=== PATIENT | female | born 1970 | race Caucasian/White ===

== ENCOUNTER 2022-09-14 10:34 | Inpatient (IN) ==
[2022-09-14] MEDS ORDERED: ALBUTEROL SULFATE 2.5 MG/3 ML NEBULIZER NEB ONE (11:05)
[2022-09-14] MEDS ORDERED: methylPREDNISolone SOD SUCC 125 MG/2 ML VIAL IM ONE (11:05)
--- NOTE | 2022-09-14 11:31 | XRay Report ---
CLINICAL INFORMATION: Asthma COMPARISON: 02/22/2022 TECHNIQUE: Portable FINDINGS: The heart size, mediastinum and pulmonary vessels are unremarkable. The lungs are clear. There are no effusions. The bones and soft tissues are within normal limits. IMPRESSION: Normal chest. Interpreted and Authenticated by: Eron Giron 09/14/22
[2022-09-14] MEDS ORDERED: ALBUTEROL SULFATE 2.5 MG/3 ML NEBULIZER NEB PRN (12:40)
[2022-09-14 13:57] LABS: POC Calcium, Ionized 1.16 (1.16-1.32); POC Potassium 3.7 (3.3-5.1)
[2022-09-14 13:59] LABS: Basophils # (Auto) 0.01 K/mcL (0.00-0.30); Basophils % (Auto) 0.1 % (0.0-2.0); Eosinophils # (Auto) 0 K/mcL (0.00-0.70); Eosinophils % (Auto) 0 % (0.0-7.0); Hematocrit 44.4 % (34.1-44.9); Hemoglobin 14.9 g/dL (11.2-15.7); Lymphocytes # (Auto) 0.72 K/mcL (1.50-4.80); Lymphocytes % (Auto) 7.9 % (15.5-49.0); Mean Cell Volume 87.9 fL (80.0-100.0); Mean Corpuscular HGB Conc 33.6 g/dL (31.0-36.0); Mean Platelet Volume 9.9 fL (8.8-12.5); Monocytes # (Auto) 0.16 K/mcL (0.10-0.90); Monocytes % (Auto) 1.8 % (1.0-12.0); Platelet Count 307 K/mcL (140-440); RBC 5.05 M/mcL (3.59-5.38); Red Cell Distribution Width 13.2 % (11.5-14.5); WBC 9.1 K/mcL (4.5-11.0)
--- NOTE | 2022-09-14 14:50 | Emergency Department Note ---
HPI General Chief complaint: Shortness of Breath/Dyspnea Stated complaint: SOB Time Seen by Provider: 09/14/22 11:02 Source: patient Mode of arrival: ambulatory Limitations: no limitations History of Present Illness HPI Narrative: Narrative: 51-year-old female presents the emergency department complaining of shortness of breath. She says she does have history of asthma and feels like she is cannot catch her breath. Says she has had cough and congestion over the last couple days but not having any productive sputum. She states she has had not had any fevers either. Patient states that she is been trying albuterol treatments at home with very little relief she is currently already been on 2 days of predni sone with very little relief as well. She feels like she is just overcome that threshold where she may need further albuterol treatment and nebulizer treatment before she is better. She unfortunately is unable to do DuoNebs as she says her throat swells up whenever she does a DuoNeb. Patient says she can do systemic steroids is just what ever is in the DuoNeb she is unable to do. Denying any o ther symptoms otherwise. Said whenever she walks she feels like she just ran a mile and cannot catch her breath. Related Data Home Medications Medication Instructions Recorded Confirmed albuterol sulfate 90 mcg/actuation 8.5 gm IH Q4HP PRN Shortness Of 12/23/17 08/29/22 aerosol inhaler (ProAir HFA) Breath calcium carbonate 334 mg-magnesium 1 ea PO DAILY 12/23/17 08/29/22 oxide 134 mg-zinc oxide 5 mg tablet cholecalciferol (vitamin D3) 125 10,000 unit PO DAILY 12/23/17 08/29/22 mcg (5,000 unit) capsule (Dialyvite Vitamin D) docusate sodium 100 mg capsule 100 mg PO Q48 12/23/17 08/29/22 (DulcoEase) flaxseed oil 1,000 mg capsule 2,000 mg PO DAILY 12/23/17 08/29/22 fluticasone 100 mcg-salmeterol 50 1 puff INH BID 12/23/17 08/29/22 mcg/dose blistr powdr for inhalation (Advair Diskus) fluticasone propionate 220 2 puff INH QHS 02/25/18 11/01/22 mcg/actuation HFA aerosol inhaler (Flovent HFA) iron-vit C-vit Z10-dzxlr acid 100 1 ea PO DAILY 12/23/17 08/23/22 mg-250 mg-25 mcg-1 mg tablet (Iron) potassium chloride 20 mEq 20 meq PO QAMCC PRN Pain 12/23/17 08/23/22 tablet,extended release(part/cryst) (Klor-Con M) vit no.95-ferrous 1 ea PO DAILY 12/23/17 08/29/22 fumarate 28 mg-folic acid 800 mcg tablet ( Formula) Vital Protiens-collagen 1 tab PO DAILY 07/07/21 08/29/22 albuterol sulfate 2.5 mg/3 mL 2.5 mg inhalation Q4H PRN Asthma 07/07/21 08/29/22 (0.083 %) solution for nebulization hydroxyzine HCl 10 mg tablet 10 mg PO ONCE PRN Itching 07/07/21 08/29/22 levalbuterol tartrate 45 2 inh inhalation Q6H PRN Shortness 07/07/21 08/29/22 mcg/actuation aerosol inhaler Of Breath clonidine 0.1 mg/24 hr weekly 1 patch transdermal WEEKLY PRN 09/20/21 08/23/22 transdermal patch Anxiety benralizumab 30 mg/mL subcutaneous 30 mg subcut Q4W 12/02/21 08/29/22 syringe (Fasenra) Previous Rx's Medication Instructions Recorded epinephrine 0.3 mg/0.3 mL 0.3 mg (0.3 mL) IM DAILYP PRN 09/27/21 injection, auto-injector (EpiPen) Allergic Reaction #2 ea acyclovir 800 mg tablet 800 mg PO DAILY PRN rash #50 tabs 03/14/22 cyclobenzaprine 5 mg tablet 5 mg PO MONTHLY #3 tabs 07/25/22 dicyclomine 10 mg capsule 10 mg PO QDAY #90 caps 07/25/22 famotidine 40 mg tablet (Pepcid) 40 mg PO DAILY #30 tabs 07/25/22 hydroxyzine HCl 50 mg tablet 50 mg PO HS #90 tabs 07/25/22 levothyroxine 112 mcg tablet 112 mcg PO QDAY #90 tabs 07/25/22 ondansetron HCl 4 mg tablet 4 mg PO Q4-6H PRN Nausea And 07/25/22 Vomiting #30 tabs rizatriptan 10 mg tablet 10 mg PO .COMPLEX PRN Headache #18 07/25/22 tabs sertraline 50 mg tablet 50 mg PO DAILY #90 tabs 07/25/22 verapamil 240 mg tablet,extended See Rx Instructions PO BID #135 07/25/22 release tabs lorazepam 1 mg tablet 2 mg PO QHS 90 days #180 tabs 08/14/22 lansoprazole 30 mg capsule,delayed 30 mg PO QDAY #30 caps 08/24/22 release sucralfate 1 gram tablet 1 g PO BID PRN stomach pain #60 08/24/22 tabs Allergies Allergy/AdvReac Type Severity Reaction Status Date / Time aloe Allergy Unknown Unknown Verified 08/23/22 13:25 povidone-iodine Allergy Unknown Unknown Verified 08/23/22 13:25 [From Scrub Care Povidone Iodine] soybean Allergy Unknown Unknown Verified 08/23/22 13:25 vilazodone Allergy Unknown Unknown Verified 08/23/22 13:25 Zileuton Allergy Unknown Unknown Verified 08/23/22 13:25 acetaminophen [From Fioricet] Allergy Anaphylaxis Verified 08/23/22 13:25 azithromycin Allergy Anaphylaxis Verified 08/23/22 13:25 Beclomethasone Allergy Anaphylaxis Verified 08/23/22 13:25 butalbital [From Fioricet] Allergy Anaphylaxis Verified 08/23/22 13:25 caffeine [From Fioricet] Allergy Anaphylaxis Verified 08/23/22 13:25 cephalexin [From Keflex] Allergy Anaphylaxis Verified 08/23/22 13:25 clarithromycin [From Biaxin] Allergy Anaphylaxis Verified 08/23/22 13:25 Cromolyn Allergy Anaphylaxis Verified 08/23/22 13:25 diphenhydramine Allergy Anaphylaxis Verified 08/23/22 13:25 [From Benadryl] escitalopram Allergy Anaphylaxis Verified 08/23/22 13:25 etomidate [From Amidate] Allergy Anaphylaxis Verified 08/23/22 13:25 furosemide Allergy Anaphylaxis Verified 08/23/22 13:25 hydrocodone Allergy Anaphylaxis Verified 08/23/22 13:25 iodine Allergy Anaphylaxis Verified 08/23/22 13:25 ipratropium Allergy Anaphylaxis Verified 08/23/22 13:25 lanolin Allergy Anaphylaxis Verified 08/23/22 13:25 latex Allergy Anaphylaxis Verified 08/23/22 13:25 magnesium Allergy Anxiety Verified 08/23/22 13:25 miconazole Allergy Anaphylaxis Verified 08/23/22 13:25 naproxen [From Aleve] Allergy Anaphylaxis Verified 08/23/22 13:25 Penicillins Allergy Anaphylaxis Verified 08/23/22 13:25 promethazine [From Phenergan] Allergy Anaphylaxis Verified 08/23/22 13:25 Sulfa (Sulfonamide Allergy Anaphylaxis Verified 08/23/22 13:25 Antibiotics) venlafaxine [From Effexor] Allergy Anaphylaxis Verified 08/23/22 13:25 propofol AdvReac Other Verified 08/23/22 13:25 trilyte Allergy Unknown Unknown Uncoded 08/23/22 13:25 Review of Systems ROS ROS Narrative: Narrative: All systems ED: reviewed and negative except as stated. [facility] Narrative Patient History Narrative: Narrative: Medical/Surgical/Family History All Active Problems (Updated 09/14/22 @ 14:50 by Roberto Thorpe DO) Asthma with exacerbation (Chronic) Viral rash (Chronic) Genital herpes (Chronic) Allergic reaction (Chronic) Cramps of left lower extremity (Chronic) Hypoglycemia (Chronic) Allergic reaction caused by a drug (Chronic) Adverse reaction to drug (Chronic) COVID-19 (Chronic) Dehydration (Chronic) PTSD (post-traumatic stress disorder) (Chronic) Anxiety (Chronic) Hypothyroid (Chronic) Hypertension (Chronic) Tachycardia (Chronic) Palpitations (Chronic) Asthma (Chronic) COPD (chronic obstructive pulmonary disease) (Chronic) Cervical cancer (Chronic) Uterine cancer (Chronic) Esophageal spasm (Chronic) Arm mass (Chronic) Herpes (Chronic) Chlamydia (Chronic) Migraines (Chronic) Vitamin D deficiency (Chronic) B12 deficiency (Chronic) Potassium (K) deficiency (Chronic) Iron deficiency (Chronic) Multiple food allergies (Chronic) Peripheral nerve disease (Chronic) Sleep apnea (Chronic) Thyroid disorder (Chronic) Shortness of breath (Acute) Acute asthma exacerbation (Acute) Pelvic pain (Acute) Mixed incontinence (Acute) Allergic reaction (Acute) Left lower quadrant pain (Acute) Dyspareunia (Acute) Major depressive disorder, recurrent (Chronic) Asthma exacerbation (Acute) Medical History Allergic reaction caused by a drug Anxiety Arm mass Multiple Mass/bumps in left forearm-Benign tumores Asthma B12 deficiency Cervical cancer Chlamydia COPD (chronic obstructive pulmonary disease) COVID-19 Dehydration Esophageal spasm Herpes Hypertension Hypothyroid Iron deficiency Migraines Multiple food allergies Palpitations Peripheral nerve disease Potassium (K) deficiency PTSD (post-traumatic stress disorder) Sleep apnea Tachycardia Thyroid disorder Uterine cancer Hysterectomy 1998 Vitamin D deficiency Surgical History History of appendectomy (~2005) History of (~1996) History of cholecystectomy (~2007) History of colonoscopy (12/08/21) History of D&C x6 History of esophagogastroduodenoscopy (EGD) (12/08/21) 02/01/22 History of gastric bypass (~2013) History of hysterectomy (~1997) History of intestinal surgery (~2015) GI repair History of nasal surgery (~1999) History of oral surgery (~1999) [place] Palate Family History Mother Diabetes Thyroid disorder Dementia Degenerative joint disease Father Hypertension Social History Smoking Status: Never smoker Alcohol Intake Frequency: does not drink Substance Use: does not use Exam Narrative Narrative: Narrative: Vital signs noted General: Awake. Alert. No distress. Skin: Warm. Dry. No rash. HEENT: NCAT. PERRL. EOMI. No conjunctivitis. No nystagmus. No pharyngitis. Membranes moist. Neck: No PTP. Good ROM. No meningeal signs. No stridor. No thyromegaly. No JVD. Cardiovascular: Cardiac and regular. No murmur. No rubs. No gallops. Respiratory: Mild respiratory distress with wheezes heard throughout and expiratory wheezes heard that were audible. Oropharynx is open and patent Gastrointestinal: Abdomen soft. No tenderness. No distention. Normal bowel sounds. No palpable organomegaly or masses. Back: No deformity. No CVAT. Musculoskeletal: No tenderness. No swelling. No erythema. No edema. Good peripheral pulses x 4 Lymphatic: No palpable adenopathy. Neurological: No focal neurological deficits observed. General Limitations: no limitations Course Vital Signs Vital signs: Vital Signs Temperature 97.5 F 09/14/22 10:36 Pulse Rate 95 H 09/14/22 10:36 Respiratory Rate 26 H 09/14/22 10:36 Blood Pressure 129/82 09/14/22 10:36 Pulse Oximetry (%) 93 09/14/22 10:36 Oxygen Delivery Method 09/14/22 10:36 Temperature 97.5 F 09/14/22 10:36 Pulse Rate 91 H 09/14/22 15:50 Respiratory Rate 26 H 09/14/22 10:36 Blood Pressure 126/77 09/14/22 15:50 Pulse Oximetry (%) 94 09/14/22 15:50 Oxygen Delivery Method 09/14/22 10:36 MDM MDM Narrative Medical decision making narrative: Narrative: Patient actually looks well on exam. She although is in moderate to mild respiratory distress. I immediately gave her 3 albuterol treatments in the hope that this would help with her breathing unfortunately and unable to get DuoNeb treatments. I also got an x-ray of her chest which came back no acute findings. Also gave her Solu-Medrol as well. I let her rest for about an hour to see how she was feeling she shortly got up to go to the bathroom immediately became more short of breath and said that she felt like she was having a hard time breathing she was very tachypneic and not moving much air so I gave her another breathing treatment. This time aside to order labs to be sure I am not missing underlying infection. CBC came back no acute findings no signs of leukocytosis very low suspicion for pneumonia I think this is just a asthma exacerbation that was exacerbated secondary to a viral URI that currently is going on. Viral panel is pending at this time influenza and COVID were all negative. Patient is currently needing every 2 hours nebulizer treatments I think she needs continued steroids. Due to this I think patient would benefit from being admitted to the hospital she is not needing oxygen at this time but is noticeably wheezy and tachypneic whenever she tries to move or get up and walk. Even just sitting at rest she becomes more more tachypneic and almost at the 2 hour srikanth needs more albuterol to help with the breathing. She did have a markedly elevated glucose which I think is due to the steroid use I did speak with her about this and said that is normal when she does steroids. But she is not in DKA and there is no anion gap. I spoke with the hospitalist Dr. LARSEN who has agreed to admit the patient. Patient is can to be admitted in fair condition. He did request a VBG which was ordered while here. VBG did show lactic acidosis as well as an lowered bicarb which can be expected with that. Again I think that is due to the breathing and possibly the increase in albuterol and the steroids. Lab Data Result diagrams: 09/14/22 13:00 Labs: Lab Results 09/14/22 09/14/22 09/14/22 Range/Units 13:00 13:00 13:53 WBC 9.1 (4.5-11.0) K/mcL RBC 5.05 (3.59-5.38) M/mcL Hgb 14.9 (11.2-15.7) g/dL Hct 44.4 (34.1-44.9) % POC Hct 43.0 (36-48) MCV 87.9 (80.0-100.0) fL MCH 29.5 (26.0-34.0) pg MCHC 33.6 (31.0-36.0) g/dL RDW 13.2 (11.5-14.5) % Plt Count 307 (140-440) K/mcL MPV 9.9 (8.8-12.5) fL Immature Gran % (Auto) 0.2 (0.0-0.5) % Neut % (Auto) 90.0 H (38.0-78.0) % Lymph % (Auto) 7.9 L (15.5-49.0) % [place] % (Auto) 1.8 (1.0-12.0) % Eos % (Auto) 0 (0.0-7.0) % Baso % (Auto) 0.1 (0.0-2.0) % Lymph # (Auto) 0.72 L (1.50-4.80) K/mcL [place] # (Auto) 0.16 (0.10-0.90) K/mcL Eos # (Auto) 0 (0.00-0.70) K/mcL Baso # (Auto) 0.01 (0.00-0.30) K/mcL Immature Gran # 0.02 (0.00-0.05) K/mcl Absolute Neutrophils 8.20 H (1.80-8.00) K/mcL POC VBG pH (7.32-7.42) POC VBG pCO2 at Temp (41-51) POC VBG pO2 (25-40) POC VBG HCO3 (24-28) POC VBG Total CO2 (25-29) POC Venous O2 Sat (40-70) POC VBG Base Excess (-2-2) VBG Lactic Acid (0.5-2) POC Sodium 140 (133-145) POC Potassium 3.7 (3.3-5.1) POC Chloride 106 (96-108) POC Total CO2 19.0 L (22-30) POC BUN 14 (6-20) POC Creatinine 1.0 (0.6-1.2) POC Glucose 422 H (70-105) POC WB Ioniz Calcium 1.16 (1.16-1.32) Procalcitonin 0.05 (<0.10) ng/mL 09/14/22 Range/Units 14:53 WBC (4.5-11.0) K/mcL RBC (3.59-5.38) M/mcL Hgb (11.2-15.7) g/dL Hct (34.1-44.9) % POC Hct (36-48) MCV (80.0-100.0) fL MCH (26.0-34.0) pg MCHC (31.0-36.0) g/dL RDW (11.5-14.5) % Plt Count (140-440) K/mcL MPV (8.8-12.5) fL Immature Gran % (Auto) (0.0-0.5) % Neut % (Auto) (38.0-78.0) % Lymph % (Auto) (15.5-49.0) % [place] % (Auto) (1.0-12.0) % Eos % (Auto) (0.0-7.0) % Baso % (Auto) (0.0-2.0) % Lymph # (Auto) (1.50-4.80) K/mcL [place] # (Auto) (0.10-0.90) K/mcL Eos # (Auto) (0.00-0.70) K/mcL Baso # (Auto) (0.00-0.30) K/mcL Immature Gran # (0.00-0.05) K/mcl Absolute Neutrophils (1.80-8.00) K/mcL POC VBG pH 7.36 (7.32-7.42) POC VBG pCO2 at Temp 33.1 L (41-51) POC VBG pO2 55 H (25-40) POC VBG HCO3 18.9 L (24-28) POC VBG Total CO2 20.0 L (25-29) POC Venous O2 Sat 88.0 H (40-70) POC VBG Base Excess -7.0 L (-2-2) VBG Lactic Acid 7.3 H* (0.5-2) POC Sodium (133-145) POC Potassium (3.3-5.1) POC Chloride (96-108) POC Total CO2 (22-30) POC BUN (6-20) POC Creatinine (0.6-1.2) POC Glucose (70-105) POC WB Ioniz Calcium (1.16-1.32) Procalcitonin (<0.10) ng/mL ED POC Tests ED POC Tests: THOM - Influenza A Negative THOM - Influenza B Negative THOM - SARS Antigen Negative Discharge Plan Patient/Caregiver Discharge Instructions Pt seen by PLANNER CHIEF/PA only: No Clinical Impression: Asthma exacerbation Qualifiers: Asthma severity: moderate Asthma persistence: persistent Qualified Code(s): J45.41 - Moderate persistent asthma with (acute) exacerbation Patient Disposition: Xfer As Outpt/Obs ([facility]) Discharge Date/Time: 09/14/22 16:13
[2022-09-14] MEDS ORDERED: DEXTROSE 31 GM ORAL.SUSP PO PRN (15:29)
[2022-09-14] MEDS ORDERED: DEXTROSE 50% 50 ML VIAL IV PRN (15:29)
--- NOTE | 2022-09-14 15:29 | Internal Med History&Physical ---
HPI History of Present Illness Patient information: Note initiated : 09/14/22 at 3:18 pm Service Date, if different from initiated Date: [] Patient: Miriam Santos 51 y/o F admitted on for Shortness of breath. Chief Complaint: [] History of present illness: Ms. Santos is a 51 year old female with a history of severe asthma on biologic therapy, multiple allergies, hypertension, palpitations, hypothyroidism, depression, anxiety, PTSD, multiple prior cancers who presented to the emergency department with shortness of breath. The patient has been trying to manage her asthma at home for the last 2 days with no success. She is taken prednisone 60 mg daily and increased her albuterol inhaler but continues to feel shortness of breath. The patient says that she usually goes to the emergency department if her symptoms do not improve after 2 days of initiating her asthma action plan. The patient says that she has been hospitalized many times for asthma exacerbations. She has been intubated many times as well however does not remember how many times she is required intubation for an asthma exacerbation. In the emergency department, the patient's respiratory rate was in the mid 20s, her heart rate was 90s to low 100s. The patient was saturating well on room air, she is afebrile. There is no leukocytosis, chemistry panel revealed a glucose of 422 but was otherwise fairly unremarkable. Hyperglycemia is likely secondary to recent prednisone use at home. Procalcitonin level was normal at 0.05. Chest x-ray did not show any acute process. Physical exam is notable for diffuse inspiratory and expiratory wheezes. Review of systems Constitutional: Positive for chills, denies fevers Eyes: no vision changes or pain Cardiovascular: no chest pain, no palpitations Respiratory: Positive for shortness of breath Gastrointestinal: Positive for mild epigastric tenderness no nausea, vomiting, or diarrhea Genitourinary: no dysuria or difficulty voiding Musculoskeletal: no arthralgia or myalgia Integumentary: no skin lesion or wound Neurological: Positive for left lower extremity neuropathic pain Psychiatric: Positive for anxiety Physical exam Head: Atraumatic, normal inspection. Eyes: normal appearance, no scleral icterus. Neck: full ROM Respiratory: Diffuse bilateral inspiratory and expiratory wheezes, no accessory muscle use, able to converse in complete sentences. Cardiovascular: normal rate and rhythm, S1, S2. GI/Abdominal: soft, nontender, no guarding. Extremities: full range of motion, nontender. Neurological: CN II-XII intact, intact motor, intact sensation. Psychiatric: normal mood. Skin: warm, normal color PFSH PFSH All Active Problems (Updated 09/14/22 @ 14:50 by Roberto Thorpe DO) Asthma with exacerbation (Chronic) Viral rash (Chronic) Genital herpes (Chronic) Allergic reaction (Chronic) Cramps of left lower extremity (Chronic) Hypoglycemia (Chronic) Allergic reaction caused by a drug (Chronic) Adverse reaction to drug (Chronic) COVID-19 (Chronic) Dehydration (Chronic) PTSD (post-traumatic stress disorder) (Chronic) Anxiety (Chronic) Hypothyroid (Chronic) Hypertension (Chronic) Tachycardia (Chronic) Palpitations (Chronic) Asthma (Chronic) COPD (chronic obstructive pulmonary disease) (Chronic) Cervical cancer (Chronic) Uterine cancer (Chronic) Esophageal spasm (Chronic) Arm mass (Chronic) Herpes (Chronic) Chlamydia (Chronic) Migraines (Chronic) Vitamin D deficiency (Chronic) B12 deficiency (Chronic) Potassium (K) deficiency (Chronic) Iron deficiency (Chronic) Multiple food allergies (Chronic) Peripheral nerve disease (Chronic) Sleep apnea (Chronic) Thyroid disorder (Chronic) Shortness of breath (Acute) Acute asthma exacerbation (Acute) Pelvic pain (Acute) Mixed incontinence (Acute) Allergic reaction (Acute) Left lower quadrant pain (Acute) Dyspareunia (Acute) Major depressive disorder, recurrent (Chronic) Asthma exacerbation (Acute) Medical History Allergic reaction caused by a drug Anxiety Arm mass Multiple Mass/bumps in left forearm-Benign tumores Asthma B12 deficiency Cervical cancer Chlamydia COPD (chronic obstructive pulmonary disease) COVID-19 Dehydration Esophageal spasm Herpes Hypertension Hypothyroid Iron deficiency Migraines Multiple food allergies Palpitations Peripheral nerve disease Potassium (K) deficiency PTSD (post-traumatic stress disorder) Sleep apnea Tachycardia Thyroid disorder Uterine cancer Hysterectomy 1998 Vitamin D deficiency Surgical History History of appendectomy (~2005) History of (~1996) History of cholecystectomy (~2007) History of colonoscopy (12/08/21) History of D&C x6 History of esophagogastroduodenoscopy (EGD) (12/08/21) 02/01/22 History of gastric bypass (~2013) History of hysterectomy (~1997) History of intestinal surgery (~2015) GI repair History of nasal surgery (~1999) History of oral surgery (~1999) Soft Palate Family History Mother Diabetes Thyroid disorder Dementia Degenerative joint disease Father Hypertension Social History household members: spouse and family marital status: occupational status: disabled physical activity: none smoking status: Never smoker alcohol intake frequency: does not drink substance use type: does not use seatbelt use: always MEDS/ALLERGIES Home Medications and Allergies Home Medications Medication Instructions Recorded Confirmed Type albuterol sulfate 90 mcg/actuation 8.5 gm IH Q4HP PRN Shortness Of 12/23/17 08/29/22 History aerosol inhaler (ProAir HFA) Breath calcium carbonate 334 mg-magnesium 1 ea PO DAILY 12/23/17 08/29/22 History oxide 134 mg-zinc oxide 5 mg tablet cholecalciferol (vitamin D3) 125 10,000 unit PO DAILY 12/23/17 08/29/22 History mcg (5,000 unit) capsule (Dialyvite Vitamin D) docusate sodium 100 mg capsule 100 mg PO Q48 12/23/17 08/29/22 History (DulcoEase) flaxseed oil 1,000 mg capsule 2,000 mg PO DAILY 12/23/17 08/29/22 History fluticasone 100 mcg-salmeterol 50 1 puff INH BID 12/23/17 08/29/22 History mcg/dose blistr powdr for inhalation (Advair Diskus) fluticasone propionate 220 2 puff INH QHS 12/23/17 08/29/22 History mcg/actuation HFA aerosol inhaler (Flovent HFA) iron-vit C-vit M90-sjezn acid 100 1 ea PO DAILY 12/23/17 08/23/22 History mg-250 mg-25 mcg-1 mg tablet (Iron) potassium chloride 20 mEq 20 meq PO QAMCC PRN Pain 12/23/17 08/23/22 History tablet,extended release(part/cryst) (Klor-Con M) vit no.95-ferrous 1 ea PO DAILY 12/23/17 08/29/22 History fumarate 28 mg-folic acid 800 mcg tablet ( Formula) Vital Protiens-collagen 1 tab PO DAILY 07/07/21 08/29/22 History albuterol sulfate 2.5 mg/3 mL 2.5 mg inhalation Q4H PRN Asthma 07/07/21 08/29/22 History (0.083 %) solution for nebulization hydroxyzine HCl 10 mg tablet 10 mg PO ONCE PRN Itching 07/07/21 08/29/22 History levalbuterol tartrate 45 2 inh inhalation Q6H PRN Shortness 07/07/21 08/29/22 History mcg/actuation aerosol inhaler Of Breath clonidine 0.1 mg/24 hr weekly 1 patch transdermal WEEKLY PRN 09/20/21 08/23/22 History transdermal patch Anxiety epinephrine 0.3 mg/0.3 mL 0.3 mg (0.3 mL) IM DAILYP PRN 09/27/21 08/29/22 Rx injection, auto-injector (EpiPen) Allergic Reaction #2 ea benralizumab 30 mg/mL subcutaneous 30 mg subcut Q4W 12/02/21 08/29/22 History syringe (Fasenra) acyclovir 800 mg tablet 800 mg PO DAILY PRN rash #50 tabs 03/14/22 08/23/22 Rx cyclobenzaprine 5 mg tablet 5 mg PO MONTHLY #3 tabs 07/25/22 08/23/22 Rx dicyclomine 10 mg capsule 10 mg PO QDAY #90 caps 07/25/22 08/29/22 Rx famotidine 40 mg tablet (Pepcid) 40 mg PO DAILY #30 tabs 07/25/22 08/29/22 Rx hydroxyzine HCl 50 mg tablet 50 mg PO HS #90 tabs 07/25/22 08/29/22 Rx levothyroxine 112 mcg tablet 112 mcg PO QDAY #90 tabs 07/25/22 08/29/22 Rx ondansetron HCl 4 mg tablet 4 mg PO Q4-6H PRN Nausea And 07/25/22 08/29/22 Rx Vomiting #30 tabs rizatriptan 10 mg tablet 10 mg PO .COMPLEX PRN Headache #18 07/25/22 08/29/22 Rx tabs sertraline 50 mg tablet 50 mg PO DAILY #90 tabs 07/25/22 08/23/22 Rx verapamil 240 mg tablet,extended See Rx Instructions PO BID #135 07/25/22 08/29/22 Rx release tabs lorazepam 1 mg tablet 2 mg PO QHS 90 days #180 tabs 08/14/22 08/29/22 Rx lansoprazole 30 mg capsule,delayed 30 mg PO QDAY #30 caps 08/24/22 08/29/22 Rx release sucralfate 1 gram tablet 1 g PO BID PRN stomach pain #60 08/24/22 08/29/22 Rx tabs Allergies Allergy/AdvReac Type Severity Reaction Status Date / Time aloe Allergy Unknown Unknown Verified 08/23/22 13:25 povidone-iodine Allergy Unknown Unknown Verified 08/23/22 13:25 [From Scrub Care Povidone Iodine] soybean Allergy Unknown Unknown Verified 08/23/22 13:25 vilazodone Allergy Unknown Unknown Verified 08/23/22 13:25 Zileuton Allergy Unknown Unknown Verified 08/23/22 13:25 acetaminophen [From Fioricet] Allergy Anaphylaxis Verified 08/23/22 13:25 azithromycin Allergy Anaphylaxis Verified 08/23/22 13:25 Beclomethasone Allergy Anaphylaxis Verified 08/23/22 13:25 butalbital [From Fioricet] Allergy Anaphylaxis Verified 08/23/22 13:25 caffeine [From Fioricet] Allergy Anaphylaxis Verified 08/23/22 13:25 cephalexin [From Keflex] Allergy Anaphylaxis Verified 08/23/22 13:25 clarithromycin [From Biaxin] Allergy Anaphylaxis Verified 08/23/22 13:25 Cromolyn Allergy Anaphylaxis Verified 08/23/22 13:25 diphenhydramine Allergy Anaphylaxis Verified 08/23/22 13:25 [From Benadryl] escitalopram Allergy Anaphylaxis Verified 08/23/22 13:25 etomidate [From Amidate] Allergy Anaphylaxis Verified 08/23/22 13:25 furosemide Allergy Anaphylaxis Verified 08/23/22 13:25 hydrocodone Allergy Anaphylaxis Verified 08/23/22 13:25 iodine Allergy Anaphylaxis Verified 08/23/22 13:25 ipratropium Allergy Anaphylaxis Verified 08/23/22 13:25 lanolin Allergy Anaphylaxis Verified 08/23/22 13:25 latex Allergy Anaphylaxis Verified 08/23/22 13:25 magnesium Allergy Anxiety Verified 08/23/22 13:25 miconazole Allergy Anaphylaxis Verified 08/23/22 13:25 naproxen [From Aleve] Allergy Anaphylaxis Verified 08/23/22 13:25 Penicillins Allergy Anaphylaxis Verified 08/23/22 13:25 promethazine [From Phenergan] Allergy Anaphylaxis Verified 08/23/22 13:25 Sulfa (Sulfonamide Allergy Anaphylaxis Verified 08/23/22 13:25 Antibiotics) venlafaxine [From Effexor] Allergy Anaphylaxis Verified 08/23/22 13:25 propofol AdvReac Other Verified 08/23/22 13:25 trilyte Allergy Unknown Unknown Uncoded 08/23/22 13:25 EXAM Constitutional Vitals: Temp Pulse Resp BP Pulse Ox O2 Del Method 97.5 F 91 H 26 H 129/82 95 09/14/22 10:36 09/14/22 14:59 09/14/22 10:36 09/14/22 10:36 09/14/22 14:59 09/14/22 10:36 DATA Data Completed and Pending Labs: Labs from last 24 hours 09/14/22 09/14/22 09/14/22 14:53 13:53 13:00 WBC RBC Hgb Hct POC Hct 43.0 MCV MCH MCHC RDW Plt Count MPV Immature Gran % (Auto) Neut % (Auto) Lymph % (Auto) [place] % (Auto) Eos % (Auto) Baso % (Auto) Lymph # (Auto) [place] # (Auto) Eos # (Auto) Baso # (Auto) Immature Gran # Absolute Neutrophils POC VBG pH 7.36 POC VBG pCO2 at Temp 33.1 L POC VBG pO2 55 H POC VBG HCO3 18.9 L POC VBG Total CO2 20.0 L POC Venous O2 Sat 88.0 H POC VBG Base Excess -7.0 L VBG Lactic Acid 7.3 H* POC Sodium 140 POC Potassium 3.7 POC Chloride 106 POC Total CO2 19.0 L POC BUN 14 POC Creatinine 1.0 POC Glucose 422 H POC WB Ioniz Calcium 1.16 Procalcitonin 0.05 09/14/22 13:00 WBC 9.1 RBC 5.05 Hgb 14.9 Hct 44.4 POC Hct MCV 87.9 MCH 29.5 MCHC 33.6 RDW 13.2 Plt Count 307 MPV 9.9 Immature Gran % (Auto) 0.2 Neut % (Auto) 90.0 H Lymph % (Auto) 7.9 L [place] % (Auto) 1.8 Eos % (Auto) 0 Baso % (Auto) 0.1 Lymph # (Auto) 0.72 L [place] # (Auto) 0.16 Eos # (Auto) 0 Baso # (Auto) 0.01 Immature Gran # 0.02 Absolute Neutrophils 8.20 H POC VBG pH POC VBG pCO2 at Temp POC VBG pO2 POC VBG HCO3 POC VBG Total CO2 POC Venous O2 Sat POC VBG Base Excess VBG Lactic Acid POC Sodium POC Potassium POC Chloride POC Total CO2 POC BUN POC Creatinine POC Glucose POC WB Ioniz Calcium Procalcitonin A/P Narrative A/P Narrative: Assessment: 51 year old female with a history of severe asthma on biologic therapy, multiple allergies, hypertension, palpitations, hypothyroidism, depression, anxiety, PTSD, multiple prior cancers who presented to the emergency department with shortness of breath and found to have an asthma exacerbation. The patient has been hospitalized at multiple times for asthma exacerbations, she has also required intubation and mechanical ventilation for prior asthma exacerbations. #Asthma exacerbation with severe asthma at baseline #Multiple allergies #Hyperglycemia likely secondary to steroid #Hypertension #Hypothyroidism #Depression #Anxiety disorder #PTSD #Obesity BMI 32 Plan -Solu-Medrol 125 mg IV daily for now. -Scheduled and as needed Xopenex nebulizer. -Obtain VBG and lactic acid for admission baseline. -Respiratory virus panel. -Monitor respiratory status closely in PCU. -Check Hemoglobin A1C. -Humalog SSI-low dose. -Home medication reconciliation. -Review all new medications for possible allergies. -Regular diet. -DVT prophylaxis: SCDs -CODE STATUS: Application Support Engineer Spent With Patient Time: Total time spent is greater than 50% in coordination of care (as documented) at patient's floor/unit and/or counseling patient:
[2022-09-14] MEDS ORDERED: cloNIDine TTS 1 1 PATCH PATCH TD ONE (16:25)
[2022-09-14] MEDS ORDERED: LACTULOSE 20 GM/30 ML ORAL.SOL PO PRN (16:25)
[2022-09-14] MEDS ORDERED: LEVALBUTEROL 1.25 MG/3 ML AMPUL.NEB NEB PRN (16:25)
[2022-09-14] MEDS ORDERED: ONDANSETRON 4 MG/2 ML VIAL IV PRN (16:25)
[2022-09-14] MEDS ORDERED: 0.9 % SODIUM CHLORIDE 1,000 ML IV ONE (16:25)
[2022-09-14] MEDS ORDERED: SENNOSIDES 1 TABLET PO PRN (16:25)
[2022-09-14] MEDS: INSULIN LISPRO 1 UNIT/0.01 ML UNIT SQ SCH ×2 (17:37→22:04)
[2022-09-14] MEDS: LEVALBUTEROL 1.25 MG/3 ML AMPUL.NEB NEB SCH ×3 (18:00→22:04)
[2022-09-14] MEDS: DOCUSATE SODIUM 100 MG CAPSULE PO SCH (22:01)
[2022-09-14] MEDS ORDERED: Rizatriptan 10 mg tablet PO PRN (22:08)
[2022-09-14] MEDS: LORazepam 1 MG TABLET PO SCH (22:19)
[2022-09-14] MEDS: 0.9 % SODIUM CHLORIDE 10 ML SYRINGE IV SCH (22:20)
[2022-09-14] MEDS: hydrOXYzine 25 MG TABLET PO SCH (22:30)
[2022-09-15] MEDS ORDERED: OSELTAMIVIR PHOSPHATE 75 MG CAPSULE PO ONE (02:25)
[2022-09-15] MEDS: OSELTAMIVIR PHOSPHATE 75 MG CAPSULE PO SCH ×3 (02:30→20:44)
[2022-09-15] MEDS: LEVALBUTEROL 1.25 MG/3 ML AMPUL.NEB NEB SCH ×6 (03:23→22:19)
[2022-09-15] MEDS: 0.9 % SODIUM CHLORIDE 10 ML SYRINGE IV SCH ×3 (05:56→20:49)
[2022-09-15 06:51] LABS: Hemoglobin A1C 5.3 % Hgb (4.0-6.0)
[2022-09-15] MEDS: INSULIN LISPRO 1 UNIT/0.01 ML UNIT SQ SCH ×2 (07:21→11:23)
[2022-09-15] MEDS: PANTOPRAZOLE 40 MG TABLET PO SCH (07:21)
[2022-09-15] MEDS: DOCUSATE SODIUM 100 MG CAPSULE PO SCH ×2 (08:55→20:47)
[2022-09-15] MEDS: LEVOTHYROXINE SODIUM 112 MCG TABLET PO SCH (08:55)
[2022-09-15] MEDS: VERAPAMIL 120 MG TAB.XL.24H PO SCH (08:55)
[2022-09-15] MEDS: DICYCLOMINE 20 MG TABLET PO SCH (08:55)
[2022-09-15] MEDS: SERTRALINE 50 MG TABLET PO SCH (08:55)
[2022-09-15] MEDS: FAMOTIDINE 20 MG TABLET PO SCH (08:56)
[2022-09-15] MEDS: methylPREDNISolone SOD SUCC 125 MG/2 ML VIAL IV SCH (08:56)
[2022-09-15] MEDS ORDERED: hydrOXYzine 25 MG TABLET PO PRN (12:37)
[2022-09-15] MEDS: ACETAMINOPHEN 500 MG TABLET PO PRN ×2 (13:27→20:44)
--- NOTE | 2022-09-15 14:52 | Internal Med Progress Note ---
SUBJECTIVE Subjective Patient information: Note initiated : 09/15/22 at 2:49 pm Service Date, if different from initiated Date: [] Patient: Miriam Santos 51 y/o F admitted on 09/14/22 for Shortness of breath. Chief Complaint: [] Interval history: Ms. Santos is a 51 year old female with a history of severe asthma on biologic therapy, multiple allergies, hypertension, palpitations, hypothyroidism, depression, anxiety, PTSD, multiple prior cancers who presented to the emergency department with shortness of breath. The patient has been trying to manage her asthma at home for the last 2 days with no success. She is taken prednisone 60 mg daily and increased her albuterol inhaler but continues to feel shortness of breath. The patient says that she usually goes to the emergency department if her symptoms do not improve after 2 days of initiating her asthma action plan. The patient says that she has been hospitalized many times for asthma exacerbations. She has been intubated many times as well however does not remember how many times she is required intubation for an asthma exacerbation. In the emergency department, the patient's respiratory rate was in the mid 20s, her heart rate was 90s to low 100s. The patient was saturating well on room air, she is afebrile. There is no leukocytosis, chemistry panel revealed a glucose of 422 but was otherwise fairly unremarkable. Hyperglycemia is likely secondary to recent prednisone use at home. Procalcitonin level was normal at 0.05. Chest x-ray did not show any acute process. Physical exam is notable for diffuse inspiratory and expiratory wheezes. 09/15 Respiratory status stable overnight, respiratory virus panel positive for influenza A. Tamiflu 75 mg twice daily started. Transfer to [facility] status. Physical exam Head: Atraumatic, normal inspection. Eyes: normal appearance, no scleral icterus. Neck: full ROM Respiratory: Diffuse bilateral inspiratory and expiratory wheezes, no accessory muscle use, able to converse in complete sentences. Cardiovascular: normal rate and rhythm, S1, S2. GI/Abdominal: soft, nontender, no guarding. Extremities: full range of motion, nontender. Neurological: CN II-XII intact, intact motor, intact sensation. Psychiatric: normal mood. Skin: warm, normal color Constitutional Vitals: Vital Signs Temp Pulse Resp BP Pulse Ox O2 Del Method 97.5 F 83 17 131/87 96 09/15/22 12:02 09/15/22 12:48 09/15/22 12:48 09/15/22 12:02 09/15/22 12:48 09/15/22 12:48 Period Temp Pulse Resp BP Sys/Sanders Pulse Ox O2 Del Method O2 Flow Rate Last 24 Hr 97.1 F-98.3 F 73-102 11-33 104-144/66-95 91-98 Room Air-Room Air Intake and Output 09/15/22 09/15/22 09/15/22 03:59 11:59 19:59 Intake Total 360 400 Output Total 450 800 Balance -90 -400 Weight 90.764 kg 90.764 kg Patient Weight 09/16/22 03:59 Weight 90.764 kg Intake & Output: Intake & Output 09/15/22 09/15/22 09/15/22 03:59 11:59 19:59 Intake Total 360 400 Output Total 450 800 Balance -90 -400 Weight 90.764 kg 90.764 kg Intake: Oral 360 400 Output: Void Amount 450 800 Other: Meal snack Breakfast Percent of Meal Consumed 100% 100% Feeding Ability Independent Urine Appearance Clear Clear Urine Color Bright Yellow Yellow Urine Odor Normal OBJ DATA Labs CBC & Chem 7: 09/14/22 13:00 Labs: Abnormal Lab Results 09/14/22 09/14/22 09/14/22 21:45 18:10 14:53 Neut % (Auto) Lymph % (Auto) Lymph # (Auto) Absolute Neutrophils POC VBG pCO2 at Temp 33.1 L POC VBG pO2 55 H POC VBG HCO3 18.9 L POC VBG Total CO2 20.0 L POC Venous O2 Sat 88.0 H POC VBG Base Excess -7.0 L VBG Lactic Acid 3.4 H 3.0 H 7.3 H* POC Total CO2 POC Glucose 09/14/22 09/14/22 13:53 13:00 Neut % (Auto) 90.0 H Lymph % (Auto) 7.9 L Lymph # (Auto) 0.72 L Absolute Neutrophils 8.20 H POC VBG pCO2 at Temp POC VBG pO2 POC VBG HCO3 POC VBG Total CO2 POC Venous O2 Sat POC VBG Base Excess VBG Lactic Acid POC Total CO2 19.0 L POC Glucose 422 H Meds: Medications Acetaminophen (Acetaminophen 500 Mg Tablet) 1,000 mg PO Q6HP PRN; Protocol PRN Reason: Per Pain Protocol Last Admin: 09/15/22 13:27 Dose: 1,000 mg Dextrose (Dextrose 50% 50 Ml Vial) 0 ml IV UD PRN PRN Reason: Per Sliding Scale Diagnostic Test (Pha) (Accu-Chek 1 Each Strip) 1 each FS [facility] Last Admin: 09/15/22 11:23 Dose: 1 each Dicyclomine HCl (Dicyclomine 20 Mg Tablet) 10 mg PO QDAY [facility] Last Admin: 09/15/22 08:55 Dose: 10 mg Docusate Sodium (Docusate Sodium 100 Mg Capsule) 100 mg PO BID [facility] Last Admin: 09/15/22 08:55 Dose: 100 mg Famotidine (Famotidine 20 Mg Tablet) 40 mg PO DAILY [facility] Last Admin: 09/15/22 08:56 Dose: 40 mg Glucose (Dextrose 31 Gm Oral.Susp) 15 gm PO PRN PRN PRN Reason: Hypoglycemia Hydroxyzine HCl (Hydroxyzine 25 Mg Tablet) 50 mg PO HS [facility] Last Admin: 09/14/22 22:30 Dose: 50 mg Hydroxyzine HCl (Hydroxyzine 25 Mg Tablet) 50 mg PO Q6HP PRN PRN Reason: Allergic Symptoms Last Admin: 09/15/22 13:29 Dose: 50 mg Insulin Human Lispro (Insulin Lispro 1 Unit/0.01 Ml Unit) 0 unit SQ [facility]; Protocol Last Admin: 09/15/22 11:23 Dose: Not Given Lactulose (Lactulose 20 Gm/30 Ml Oral.Teresa) 10 gm PO DAILYP PRN PRN Reason: Constipation Levalbuterol HCl (Levalbuterol 1.25 Mg/3 Ml Ampul.Neb) 1.25 mg NEB Q4HP [facility] Last Admin: 09/15/22 12:15 Dose: 1.25 mg Levalbuterol HCl (Levalbuterol 1.25 Mg/3 Ml Ampul.Neb) 1.25 mg NEB Q1HP PRN PRN Reason: Shortness Of Breath Levothyroxine Sodium (Levothyroxine Sodium 112 Mcg Tablet) 112 mcg PO QDAY [facility] Last Admin: 09/15/22 08:55 Dose: 112 mcg Lorazepam (Lorazepam 1 Mg Tablet) 2 mg PO QHS [facility] Last Admin: 09/14/22 22:19 Dose: 2 mg Methylprednisolone Sodium Succinate (Methylprednisolone Sod Succ 125 Mg/2 Ml Vial) 125 mg IV DAILY [facility] Last Admin: 09/15/22 08:56 Dose: 125 mg Ondansetron HCl (Ondansetron 4 Mg/2 Ml Vial) 4 mg IV Q4HP PRN; Protocol PRN Reason: Nausea And Vomiting Oseltamivir Phosphate (Oseltamivir Phosphate 75 Mg Capsule) 75 mg PO BID [facility] Stop: 09/19/22 09:01 Last Admin: 09/15/22 08:55 Dose: 75 mg Pantoprazole Sodium (Pantoprazole 40 Mg Tablet) 40 mg PO QAMAC [facility] Last Admin: 09/15/22 07:21 Dose: 40 mg Rizatriptan 10 Mg (Tablet) 1 dose PO DAILYP PRN PRN Reason: Migraine Headache Senna (Sennosides 1 Tablet) 2 tab PO HSP PRN PRN Reason: Constipation Sertraline HCl (Sertraline 50 Mg Tablet) 50 mg PO DAILY [facility] Last Admin: 09/15/22 08:55 Dose: 50 mg Sodium Chloride (0.9 % Sodium Chloride 10 Ml Syringe) 10 ml IV Q8 [facility] Last Admin: 09/15/22 14:06 Dose: 10 ml Verapamil HCl (Verapamil 120 Mg Tab.Xl.24h) 240 mg PO DAILY [facility] Last Admin: 09/15/22 08:55 Dose: 240 mg A/P Narrative A/P Narrative: Assessment: 51 year old female with a history of severe asthma on biologic therapy, multiple allergies, hypertension, palpitations, hypothyroidism, depression, anxiety, PTSD, multiple prior cancers who presented to the emergency department with shortness of breath and found to have an asthma exacerbation. The patient has been hospitalized at multiple times for asthma exacerbations, she has also required intubation and mechanical ventilation for prior asthma exacerbations. #Asthma exacerbation with severe asthma at baseline #Multiple allergies #Hyperglycemia likely secondary to steroid #Hypertension #Hypothyroidism #Depression #Anxiety disorder #PTSD #Obesity BMI 32 Plan -Transfer to [facility]. -Solu-Medrol 125 mg IV daily for now. -Scheduled and as needed Xopenex nebulizer. -Monitor fluid intake and urine output, if low start IVF. -Discontinue SSI. -Continue home Pepcid, dicyclomine, levothyroxine, Protonix, hydroxyzine at bedtime. Ativan at bedtime, rizatriptan, sertraline, verapamil. -Review all new medications for possible allergies. -Regular diet. -DVT prophylaxis: Lovenox -CODE STATUS: Slumber Room Attendant Spent With Patient Time: Total time spent is greater than 50% in coordination of care (as documented) at patient's floor/unit and/or counseling patient: QUALITY VTE Deep Vein Thrombosis/Pulmonary Embolism Present on Admission: No
[2022-09-15] MEDS: LORazepam 1 MG TABLET PO SCH (20:44)
[2022-09-15] MEDS: hydrOXYzine 25 MG TABLET PO SCH (20:46)
[2022-09-16] MEDS: 0.9 % SODIUM CHLORIDE 10 ML SYRINGE IV SCH ×3 (05:32→21:10)
[2022-09-16 06:37] LABS: Basophils # (Auto) 0.02 K/mcL (0.00-0.30); Basophils % (Auto) 0.2 % (0.0-2.0); Eosinophils # (Auto) 0 K/mcL (0.00-0.70); Eosinophils % (Auto) 0 % (0.0-7.0); Hematocrit 40.6 % (34.1-44.9); Hemoglobin 13.2 g/dL (11.2-15.7); Lymphocytes # (Auto) 1.32 K/mcL (1.50-4.80); Lymphocytes % (Auto) 16.4 % (15.5-49.0); Mean Cell Volume 91.9 fL (80.0-100.0); Mean Corpuscular HGB Conc 32.5 g/dL (31.0-36.0); Mean Platelet Volume 9.7 fL (8.8-12.5); Monocytes # (Auto) 0.59 K/mcL (0.10-0.90); Monocytes % (Auto) 7.3 % (1.0-12.0); Neutrophils % (Auto) 75.4 % (38.0-78.0); Platelet Count 291 K/mcL (140-440); RBC 4.42 M/mcL (3.59-5.38); Red Cell Distribution Width 13.8 % (11.5-14.5); WBC 8.1 K/mcL (4.5-11.0)
[2022-09-16] MEDS: LEVALBUTEROL 1.25 MG/3 ML AMPUL.NEB NEB SCH ×5 (06:48→22:58)
[2022-09-16 06:51] LABS: ALT/SGPT 23 U/L (<40); AST/SGOT 21 U/L (<32); Albumin 3.7 gm/dL (3.2-5.2); Albumin/Globulin Ratio 1.5 (1.0-2.3); Alkaline Phosphatase 106 U/L (39-117); Bilirubin,Direct < 0.2 mg/dL (0-0.3); Bilirubin,Total < 0.2 mg/dL (0.1-1.0); Blood Urea Nitrogen 16 mg/dL (6-20); Calcium 8.6 mg/dL (8.6-10.4); Carbon Dioxide 26 mmol/L (22-30); Chloride 106 mmol/L (96-108); Globulin 2.4 gm/dL (2.2-3.7); Glomerular Filtration Rate 73; Glucose 86 mg/dL (70-105); Lactate Dehydrogenase 160 U/L (135-225); Phosphorous 4.2 mg/dL (2.5-4.5); Triglycerides 94 mg/dL (<150); Uric Acid 5.4 mg/dL (2.5-8.0)
[2022-09-16] MEDS: DOCUSATE SODIUM 100 MG CAPSULE PO SCH ×2 (08:32→21:11)
[2022-09-16] MEDS: DICYCLOMINE 20 MG TABLET PO SCH (08:33)
[2022-09-16] MEDS: LEVOTHYROXINE SODIUM 112 MCG TABLET PO SCH (08:33)
[2022-09-16] MEDS: OSELTAMIVIR PHOSPHATE 75 MG CAPSULE PO SCH ×2 (08:33→21:11)
[2022-09-16] MEDS: SERTRALINE 50 MG TABLET PO SCH (08:33)
[2022-09-16] MEDS: ENOXAPARIN 40 MG/0.4 ML SYRINGE SQ SCH (08:34)
[2022-09-16] MEDS: methylPREDNISolone SOD SUCC 125 MG/2 ML VIAL IV SCH (08:34)
[2022-09-16] MEDS: PANTOPRAZOLE 40 MG TABLET PO SCH (08:34)
[2022-09-16] MEDS: FAMOTIDINE 20 MG TABLET PO SCH (08:34)
[2022-09-16] MEDS: VERAPAMIL 120 MG TAB.XL.24H PO SCH (08:42)
[2022-09-16] MEDS ORDERED: hydrOXYzine 10 MG TABLET PO PRN (10:16)
[2022-09-16] MEDS ORDERED: cloNIDine TTS 1 1 PATCH PATCH TD PRN (10:16)
[2022-09-16] MEDS ORDERED: SUCRALFATE 1 GM TABLET PO PRN (10:16)
[2022-09-16] MEDS ORDERED: PHENobarb/HYOSCY/ATROPINE/SCOP 1 DOSE BOTTLE PO PRN (10:18)
[2022-09-16] MEDS: SUCRALFATE 1 GM/10 ML ORAL.SUSP PO SCH ×2 (10:45→21:14)
[2022-09-16] MEDS ORDERED: MAGNESIUM SULFATE 2 GM/50 ML BAG IV ONE (11:00)
--- NOTE | 2022-09-16 11:22 | Internal Med Progress Note ---
SUBJECTIVE Subjective Patient information: Note initiated : 09/16/22 at 11:18 am Service Date, if different from initiated Date: [] Patient: Miriam Santos 51 y/o F admitted on 09/14/22 for Shortness of breath. Chief Complaint: [] Interval history: Ms. Santos is a 51 year old female with a history of severe asthma on biologic therapy, multiple allergies, hypertension, palpitations, hypothyroidism, depression, anxiety, PTSD, multiple prior cancers who presented to the emergency department with shortness of breath. The patient has been trying to manage her asthma at home for the last 2 days with no success. She is taken prednisone 60 mg daily and increased her albuterol inhaler but continues to feel shortness of breath. The patient says that she usually goes to the emergency department if her symptoms do not improve after 2 days of initiating her asthma action plan. The patient says that she has been hospitalized many times for asthma exacerbations. She has been intubated many times as well however does not remember how many times she is required intubation for an asthma exacerbation. In the emergency department, the patient's respiratory rate was in the mid 20s, her heart rate was 90s to low 100s. The patient was saturating well on room air, she is afebrile. There is no leukocytosis, chemistry panel revealed a glucose of 422 but was otherwise fairly unremarkable. Hyperglycemia is likely secondary to recent prednisone use at home. Procalcitonin level was normal at 0.05. Chest x-ray did not show any acute process. Physical exam is notable for diffuse inspiratory and expiratory wheezes. 09/15 Respiratory status stable overnight, respiratory virus panel positive for influenza A. Tamiflu 75 mg twice daily started. Transfer to [facility] status. 09/16 Respiratory status stable overnight, vitals notable for high-grade temperatures but no fevers. CBC and chemistry panel this morning unremarkable. Diffuse bilateral expiratory wheezing on exam today. Ordered dose of magnesium but the patient did not tolerate it due to burning sensation at the peripheral IV site so discontinued. Continuing Solu-Medrol, scheduled and as needed Xopenex. On Tamiflu for influenza A. Physical exam Head: Atraumatic, normal inspection. Eyes: normal appearance, no scleral icterus. Neck: full ROM Respiratory: Diffuse bilateral expiratory wheezes, no accessory muscle use, able to converse in complete sentences. Cardiovascular: normal rate and rhythm, S1, S2. GI/Abdominal: soft, nontender, no guarding. Extremities: full range of motion, nontender. Neurological: CN II-XII intact, intact motor, intact sensation. Psychiatric: normal mood. Skin: warm, normal color Constitutional Vitals: Vital Signs Temp Pulse Resp BP Pulse Ox O2 Del Method 99.3 F H 99 H 16 117/64 97 09/16/22 06:30 09/16/22 10:57 09/16/22 10:57 09/16/22 06:30 09/16/22 06:49 09/16/22 06:49 Period Temp Pulse Resp BP Sys/Sanders Pulse Ox O2 Del Method O2 Flow Rate Last 24 Hr 97.5 F-99.5 F 55-99 14-21 103-132/64-87 93-100 Room Air-Room Air Intake and Output 09/15/22 09/16/22 09/16/22 19:59 03:59 11:59 Intake Total 0 420 480 Output Total 500 Balance 0 420 -20 Weight 90.764 kg 93.213 kg Intake & Output: Intake & Output 09/15/22 09/16/22 09/16/22 19:59 03:59 11:59 Intake Total 0 420 480 Output Total 500 Balance 0 420 -20 Weight 90.764 kg 93.213 kg Intake: Oral 0 420 480 Output: Void Amount 500 Other: Meal sherbert x3, peaches Percent of Meal Consumed 100% Feeding Ability Independent Urine Appearance Clear Urine Color Yellow # Voids 1 2 # Bowel Movements 1 OBJ DATA Labs CBC & Chem 7: 09/16/22 05:10 09/16/22 05:10 Labs: Abnormal Lab Results 09/16/22 09/14/22 09/14/22 05:10 21:45 18:10 Immature Gran % (Auto) 0.7 H Neut % (Auto) Lymph % (Auto) Lymph # (Auto) 1.32 L Immature Gran # 0.06 H Absolute Neutrophils POC VBG pCO2 at Temp POC VBG pO2 POC VBG HCO3 POC VBG Total CO2 POC Venous O2 Sat POC VBG Base Excess VBG Lactic Acid 3.4 H 3.0 H POC Total CO2 POC Glucose 09/14/22 09/14/22 09/14/22 14:53 13:53 13:00 Immature Gran % (Auto) Neut % (Auto) 90.0 H Lymph % (Auto) 7.9 L Lymph # (Auto) 0.72 L Immature Gran # Absolute Neutrophils 8.20 H POC VBG pCO2 at Temp 33.1 L POC VBG pO2 55 H POC VBG HCO3 18.9 L POC VBG Total CO2 20.0 L POC Venous O2 Sat 88.0 H POC VBG Base Excess -7.0 L VBG Lactic Acid 7.3 H* POC Total CO2 19.0 L POC Glucose 422 H Meds: Medications Acetaminophen (Acetaminophen 500 Mg Tablet) 1,000 mg PO Q6HP PRN; Protocol PRN Reason: Per Pain Protocol Last Admin: 09/15/22 20:44 Dose: 1,000 mg Belladonna/Phenobarbital (Phenobarb/Hyoscy/Atropine/Scop 1 Dose Bottle) 1 dose PO Q4HP PRN PRN Reason: Dyspepsia Clonidine HCl (Clonidine Tts 1 1 Patch Patch) 1 patch TD WEEKLY PRN PRN Reason: Anxiety Dicyclomine HCl (Dicyclomine 20 Mg Tablet) 10 mg PO QDAY [facility] Last Admin: 09/16/22 08:33 Dose: 10 mg Docusate Sodium (Docusate Sodium 100 Mg Capsule) 100 mg PO BID [facility] Last Admin: 09/16/22 08:32 Dose: 100 mg Enoxaparin Sodium (Enoxaparin 40 Mg/0.4 Ml Syringe) 40 mg SQ DAILY [facility] Last Admin: 09/16/22 08:34 Dose: 40 mg Famotidine (Famotidine 20 Mg Tablet) 40 mg PO DAILY [facility] Last Admin: 09/16/22 08:34 Dose: 40 mg Hydroxyzine HCl (Hydroxyzine 25 Mg Tablet) 50 mg PO HS [facility] Last Admin: 09/15/22 20:46 Dose: 50 mg Hydroxyzine HCl (Hydroxyzine 10 Mg Tablet) 10 mg PO Q6HP PRN PRN Reason: Itching Lactulose (Lactulose 20 Gm/30 Ml Oral.Teresa) 10 gm PO DAILYP PRN PRN Reason: Constipation Levalbuterol HCl (Levalbuterol 1.25 Mg/3 Ml Ampul.Neb) 1.25 mg NEB Q4HP [facility] Last Admin: 09/16/22 10:49 Dose: 1.25 mg Levalbuterol HCl (Levalbuterol 1.25 Mg/3 Ml Ampul.Neb) 1.25 mg NEB Q1HP PRN PRN Reason: Shortness Of Breath Levothyroxine Sodium (Levothyroxine Sodium 112 Mcg Tablet) 112 mcg PO QDAY [facility] Last Admin: 09/16/22 08:33 Dose: 112 mcg Lorazepam (Lorazepam 1 Mg Tablet) 2 mg PO QHS [facility] Last Admin: 09/15/22 20:44 Dose: 2 mg Methylprednisolone Sodium Succinate (Methylprednisolone Sod Succ 125 Mg/2 Ml Vial) 125 mg IV DAILY [facility] Last Admin: 09/16/22 08:34 Dose: 125 mg Ondansetron HCl (Ondansetron 4 Mg/2 Ml Vial) 4 mg IV Q4HP PRN; Protocol PRN Reason: Nausea And Vomiting Oseltamivir Phosphate (Oseltamivir Phosphate 75 Mg Capsule) 75 mg PO BID [facility] Stop: 09/19/22 09:01 Last Admin: 09/16/22 08:33 Dose: 75 mg Pantoprazole Sodium (Pantoprazole 40 Mg Tablet) 40 mg PO QAMAC [facility] Last Admin: 09/16/22 08:34 Dose: 40 mg Rizatriptan 10 Mg (Tablet) 1 dose PO DAILYP PRN PRN Reason: Migraine Headache Senna (Sennosides 1 Tablet) 2 tab PO HSP PRN PRN Reason: Constipation Sertraline HCl (Sertraline 50 Mg Tablet) 50 mg PO DAILY [facility] Last Admin: 09/16/22 08:33 Dose: 50 mg Sodium Chloride (0.9 % Sodium Chloride 10 Ml Syringe) 10 ml IV Q8 [facility] Last Admin: 09/16/22 05:32 Dose: 10 ml Sucralfate (Sucralfate 1 Gm/10 Ml Oral.Susp) 1 gm PO BID [facility] Last Admin: 09/16/22 10:45 Dose: 1 gm Verapamil HCl (Verapamil 120 Mg Tab.Xl.24h) 240 mg PO DAILY [facility] Last Admin: 09/16/22 08:42 Dose: 240 mg A/P Narrative A/P Narrative: Assessment: 51 year old female with a history of severe asthma on biologic therapy, multiple allergies, hypertension, palpitations, hypothyroidism, depression, anxiety, PTSD, multiple prior cancers who presented to the emergency department with shortness of breath and found to have an asthma exacerbation. The patient has been hospitalized at multiple times for asthma exacerbations, she has also required intubation and mechanical ventilation for prior asthma exacerbations. #Asthma exacerbation with severe asthma at baseline #Multiple allergies #Hyperglycemia likely secondary to steroid #Hypertension #Hypothyroidism #Depression #Anxiety disorder #PTSD #Obesity BMI 32 Plan -Solu-Medrol 125 mg IV daily for now. -Scheduled and as needed Xopenex nebulizer. -Monitor fluid intake and urine output. -Continue home Pepcid, dicyclomine, sucralfate, levothyroxine, Protonix, hydroxyzine at bedtime, Ativan at bedtime, rizatriptan, sertraline, verapamil. -Review all new medications for possible allergies. -Regular diet. 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
[2022-09-16] MEDS: LORazepam 1 MG TABLET PO SCH (21:11)
[2022-09-16] MEDS: hydrOXYzine 25 MG TABLET PO SCH (21:11)
[2022-09-17] MEDS: 0.9 % SODIUM CHLORIDE 10 ML SYRINGE IV SCH ×3 (04:08→21:49)
[2022-09-17 06:16] LABS: Basophils # (Auto) 0.01 K/mcL (0.00-0.30); Basophils % (Auto) 0.2 % (0.0-2.0); Eosinophils # (Auto) 0 K/mcL (0.00-0.70); Eosinophils % (Auto) 0 % (0.0-7.0); Hemoglobin 13.1 g/dL (11.2-15.7); Lymphocytes # (Auto) 1.53 K/mcL (1.50-4.80); Lymphocytes % (Auto) 23.2 % (15.5-49.0); Mean Cell Volume 89.1 fL (80.0-100.0); Mean Corpuscular HGB Conc 32.8 g/dL (31.0-36.0); Mean Platelet Volume 9.8 fL (8.8-12.5); Monocytes # (Auto) 0.55 K/mcL (0.10-0.90); Monocytes % (Auto) 8.3 % (1.0-12.0); Neutrophils % (Auto) 67.5 % (38.0-78.0); Platelet Count 287 K/mcL (140-440); RBC 4.49 M/mcL (3.59-5.38); Red Cell Distribution Width 13.5 % (11.5-14.5); WBC 6.6 K/mcL (4.5-11.0)
[2022-09-17] MEDS: LEVALBUTEROL 1.25 MG/3 ML AMPUL.NEB NEB SCH ×5 (06:42→23:12)
[2022-09-17 06:49] LABS: ALT/SGPT 49 U/L (<40); AST/SGOT 34 U/L (<32); Albumin 3.7 gm/dL (3.2-5.2); Albumin/Globulin Ratio 1.6 (1.0-2.3); Alkaline Phosphatase 109 U/L (39-117); Bilirubin,Direct < 0.2 mg/dL (0-0.3); Bilirubin,Total 0.2 mg/dL (0.1-1.0); Blood Urea Nitrogen 15 mg/dL (6-20); Carbon Dioxide 27 mmol/L (22-30); Chloride 99 mmol/L (96-108); Globulin 2.3 gm/dL (2.2-3.7); Glomerular Filtration Rate 73; Glucose 83 mg/dL (70-105); Lactate Dehydrogenase 168 U/L (135-225); Phosphorous 4.2 mg/dL (2.5-4.5); Triglycerides 165 mg/dL (<150)
[2022-09-17] MEDS: methylPREDNISolone SOD SUCC 125 MG/2 ML VIAL IV SCH (08:49)
[2022-09-17] MEDS: DICYCLOMINE 20 MG TABLET PO SCH (08:49)
[2022-09-17] MEDS: ENOXAPARIN 40 MG/0.4 ML SYRINGE SQ SCH (08:49)
[2022-09-17] MEDS: FAMOTIDINE 20 MG TABLET PO SCH (08:50)
[2022-09-17] MEDS: LEVOTHYROXINE SODIUM 112 MCG TABLET PO SCH (08:50)
[2022-09-17] MEDS: DOCUSATE SODIUM 100 MG CAPSULE PO SCH ×2 (08:51→21:50)
[2022-09-17] MEDS: OSELTAMIVIR PHOSPHATE 75 MG CAPSULE PO SCH ×2 (08:51→21:54)
[2022-09-17] MEDS: PANTOPRAZOLE 40 MG TABLET PO SCH (08:51)
[2022-09-17] MEDS: SERTRALINE 50 MG TABLET PO SCH (08:51)
[2022-09-17] MEDS: VERAPAMIL 120 MG TAB.XL.24H PO SCH (09:13)
[2022-09-17] MEDS: SUCRALFATE 1 GM/10 ML ORAL.SUSP PO SCH ×2 (09:14→22:39)
--- NOTE | 2022-09-17 13:54 | Internal Med Progress Note ---
SUBJECTIVE Subjective Patient information: Note initiated : 09/17/22 at 1:51 pm Service Date, if different from initiated Date: [] Patient: Miraim Santos 51 y/o F admitted on 09/14/22 for Shortness of breath. Chief Complaint: [] Interval history: Ms. Santos is a 51 year old female with a history of severe asthma on biologic therapy, multiple allergies, hypertension, palpitations, hypothyroidism, depression, anxiety, PTSD, multiple prior cancers who presented to the emergency department with shortness of breath. The patient has been trying to manage her asthma at home for the last 2 days with no success. She is taken prednisone 60 mg daily and increased her albuterol inhaler but continues to feel shortness of breath. The patient says that she usually goes to the emergency department if her symptoms do not improve after 2 days of initiating her asthma action plan. The patient says that she has been hospitalized many times for asthma exacerbations. She has been intubated many times as well however does not remember how many times she is required intubation for an asthma exacerbation. In the emergency department, the patient's respiratory rate was in the mid 20s, her heart rate was 90s to low 100s. The patient was saturating well on room air, she is afebrile. There is no leukocytosis, chemistry panel revealed a glucose of 422 but was otherwise fairly unremarkable. Hyperglycemia is likely secondary to recent prednisone use at home. Procalcitonin level was normal at 0.05. Chest x-ray did not show any acute process. Physical exam is notable for diffuse inspiratory and expiratory wheezes. 09/15 Respiratory status stable overnight, respiratory virus panel positive for influenza A. Tamiflu 75 mg twice daily started. Transfer to [facility] status. 09/16 Respiratory status stable overnight, vitals notable for high-grade temperatures but no fevers. CBC and chemistry panel this morning unremarkable. Diffuse bilateral expiratory wheezing on exam today. Ordered dose of magnesium but the patient did not tolerate it due to burning sensation at the peripheral IV site so discontinued. Continuing Solu-Medrol, scheduled and as needed Xopenex. On Tamiflu for influenza A. 09/17 Vital stable overnight, bilateral wheezing gradually improving. Magnesium IV once, the patient says she has tolerated this well before when given for asthma exacerbations. Chest x-ray today. If chest x-ray is clear and the patient con tinues to improve planning to discharge to home tomorrow morning. Physical exam Head: Atraumatic, normal inspection. Eyes: normal appearance, no scleral icterus. Neck: full ROM Respiratory: Improved bilateral expiratory wheezes, no accessory muscle use, able to converse in complete sentences. Cardiovascular: normal rate and rhythm, S1, S2. GI/Abdominal: soft, nontender, no guarding. Extremities: full range of motion, nontender. Neurological: CN II-XII intact, intact motor, intact sensation. Psychiatric: normal mood. Skin: warm, normal color Constitutional Vitals: Vital Signs Temp Pulse Resp BP Pulse Ox O2 Del Method 98.1 F 98 H 12 127/74 95 09/17/22 12:00 09/17/22 12:00 09/17/22 12:00 09/17/22 12:00 09/17/22 12:00 09/17/22 12:00 Period Temp Pulse Resp BP Sys/Sanders Pulse Ox O2 Del Method O2 Flow Rate Last 24 Hr 97.9 F-98.6 F 75-98 - 109-137/59-89 94-99 Room Air-Room Air Intake and Output 09/17/22 09/17/22 09/17/22 03:59 11:59 19:59 Intake Total 600 Output Total 500 650 400 Balance -500 -50 -400 Weight 92.986 kg Intake & Output: Intake & Output 09/17/22 09/17/22 09/17/22 03:59 11:59 19:59 Intake Total 600 Output Total 500 650 400 Balance -500 -50 -400 Weight 92.986 kg Intake: Oral 600 Output: Void Amount 500 650 400 Other: Urine Appearance Clear Clear Clear Urine Color Bright Yellow Bright Yellow Yellow Pale Urine Odor Normal Normal Normal Stool Size Moderate Stool Color Brown Stool Consistency Normal for Patient OBJ DATA Labs CBC & Chem 7: 09/17/22 05:09 09/17/22 05:09 Labs: Abnormal Lab Results 09/17/22 09/17/22 09/16/22 05:09 05:09 05:10 Immature Gran % (Auto) 0.8 H 0.7 H Neut % (Auto) Lymph % (Auto) Lymph # (Auto) 1.32 L Immature Gran # 0.06 H Absolute Neutrophils POC VBG pCO2 at Temp POC VBG pO2 POC VBG HCO3 POC VBG Total CO2 POC Venous O2 Sat POC VBG Base Excess VBG Lactic Acid POC Total CO2 POC Glucose AST 34 H ALT 49 H Triglycerides 165 H 09/14/22 09/14/22 09/14/22 21:45 18:10 14:53 Immature Gran % (Auto) Neut % (Auto) Lymph % (Auto) Lymph # (Auto) Immature Gran # Absolute Neutrophils POC VBG pCO2 at Temp 33.1 L POC VBG pO2 55 H POC VBG HCO3 18.9 L POC VBG Total CO2 20.0 L POC Venous O2 Sat 88.0 H POC VBG Base Excess -7.0 L VBG Lactic Acid 3.4 H 3.0 H 7.3 H* POC Total CO2 POC Glucose AST ALT Triglycerides 09/14/22 09/14/22 13:53 13:00 Immature Gran % (Auto) Neut % (Auto) 90.0 H Lymph % (Auto) 7.9 L Lymph # (Auto) 0.72 L Immature Gran # Absolute Neutrophils 8.20 H POC VBG pCO2 at Temp POC VBG pO2 POC VBG HCO3 POC VBG Total CO2 POC Venous O2 Sat POC VBG Base Excess VBG Lactic Acid POC Total CO2 19.0 L POC Glucose 422 H AST ALT Triglycerides Meds: Medications Acetaminophen (Acetaminophen 500 Mg Tablet) 1,000 mg PO Q6HP PRN; Protocol PRN Reason: Per Pain Protocol Last Admin: 09/15/22 20:44 Dose: 1,000 mg Belladonna/Phenobarbital (Phenobarb/Hyoscy/Atropine/Scop 1 Dose Bottle) 1 dose PO Q4HP PRN PRN Reason: Dyspepsia Clonidine HCl (Clonidine Tts 1 1 Patch Patch) 1 patch TD WEEKLY PRN PRN Reason: Anxiety Dicyclomine HCl (Dicyclomine 20 Mg Tablet) 10 mg PO QDAY [facility] Last Admin: 09/17/22 08:49 Dose: 10 mg Docusate Sodium (Docusate Sodium 100 Mg Capsule) 100 mg PO BID [facility] Last Admin: 09/17/22 08:51 Dose: 100 mg Enoxaparin Sodium (Enoxaparin 40 Mg/0.4 Ml Syringe) 40 mg SQ DAILY [facility] Last Admin: 09/17/22 08:49 Dose: 40 mg Famotidine (Famotidine 20 Mg Tablet) 40 mg PO DAILY [facility] Last Admin: 09/17/22 08:50 Dose: 40 mg Hydroxyzine HCl (Hydroxyzine 25 Mg Tablet) 50 mg PO HS [facility] Last Admin: 09/16/22 21:11 Dose: 50 mg Hydroxyzine HCl (Hydroxyzine 10 Mg Tablet) 10 mg PO Q6HP PRN PRN Reason: Itching Last Admin: 09/16/22 11:33 Dose: 10 mg Lactulose (Lactulose 20 Gm/30 Ml Oral.Teresa) 10 gm PO DAILYP PRN PRN Reason: Constipation Levalbuterol HCl (Levalbuterol 1.25 Mg/3 Ml Ampul.Neb) 1.25 mg NEB Q4HP [facility] Last Admin: 09/17/22 11:09 Dose: 1.25 mg Levalbuterol HCl (Levalbuterol 1.25 Mg/3 Ml Ampul.Neb) 1.25 mg NEB Q1HP PRN PRN Reason: Shortness Of Breath Levothyroxine Sodium (Levothyroxine Sodium 112 Mcg Tablet) 112 mcg PO QDAY [facility] Last Admin: 09/17/22 08:50 Dose: 112 mcg Lorazepam (Lorazepam 1 Mg Tablet) 2 mg PO QHS [facility] Last Admin: 09/16/22 21:11 Dose: 2 mg Methylprednisolone Sodium Succinate (Methylprednisolone Sod Succ 125 Mg/2 Ml Vial) 125 mg IV DAILY [facility] Last Admin: 09/17/22 08:49 Dose: 125 mg Ondansetron HCl (Ondansetron 4 Mg/2 Ml Vial) 4 mg IV Q4HP PRN; Protocol PRN Reason: Nausea And Vomiting Oseltamivir Phosphate (Oseltamivir Phosphate 75 Mg Capsule) 75 mg PO BID [facility] Stop: 09/19/22 09:01 Last Admin: 09/17/22 08:51 Dose: 75 mg Pantoprazole Sodium (Pantoprazole 40 Mg Tablet) 40 mg PO QAMAC [facility] Last Admin: 09/17/22 08:51 Dose: 40 mg Rizatriptan 10 Mg (Tablet) 1 dose PO DAILYP PRN PRN Reason: Migraine Headache Senna (Sennosides 1 Tablet) 2 tab PO HSP PRN PRN Reason: Constipation Sertraline HCl (Sertraline 50 Mg Tablet) 50 mg PO DAILY [facility] Last Admin: 09/17/22 08:51 Dose: 50 mg Sodium Chloride (0.9 % Sodium Chloride 10 Ml Syringe) 10 ml IV Q8 [facility] Last Admin: 09/17/22 04:08 Dose: 10 ml Sucralfate (Sucralfate 1 Gm/10 Ml Oral.Susp) 1 gm PO BID [facility] Last Admin: 09/17/22 09:14 Dose: 1 gm Verapamil HCl (Verapamil 120 Mg Tab.Xl.24h) 240 mg PO DAILY [facility] Last Admin: 09/17/22 09:13 Dose: 240 mg A/P Narrative A/P Narrative: Assessment: 51 year old female with a history of severe asthma on biologic therapy, multiple allergies, hypertension, palpitations, hypothyroidism, depression, anxiety, PTSD, multiple prior cancers who presented to the emergency department with shortness of breath and found to have an asthma exacerbation. The patient has been hospitalized at multiple times for asthma exacerbations, she has also required intubation and mechanical ventilation for prior asthma exacerbations. #Improving asthma exacerbation with severe asthma at baseline #Multiple allergies #Oral thrush secondary to steroid #Steroid-induced hyperglycemia #Hypertension #Hypothyroidism #Depression #Anxiety disorder #PTSD #Obesity BMI 32 Plan -Solu-Medrol 125 mg IV daily for now. -Magnesium IV today. -Scheduled and as needed Xopenex nebulizer. -Chest x-ray today. -Monitor fluid intake and urine output. -Nystatin swish and swallow for thrush. -Continue home Pepcid, dicyclomine, sucralfate, levothyroxine, Protonix, hydroxyzine at bedtime, Ativan at bedtime, rizatriptan, sertraline, verapamil. -Review all new medications for possible allergies. -Regular diet. -DVT prophylaxis: Lovenox -CODE STATUS: Full -Disposition: Home when stable, possibly tomorrow, with prednisone taper and Tamiflu prescription to complete 5 days of treatment. Time Spent With Patient Time: Total time spent is greater than 50% in coordination of care (as documented) at patient's floor/unit and/or counseling patient: QUALITY VTE Deep Vein Thrombosis/Pulmonary Embolism Present on Admission: No
[2022-09-17] MEDS ORDERED: MAGNESIUM SULFATE 2 GM/50 ML BAG IV ONE (15:46)
[2022-09-17] MEDS: NYSTATIN 500,000 UNITS/5 ML ORAL.SUSP SSW SCH ×2 (16:19→21:50)
[2022-09-17] MEDS: hydrOXYzine 25 MG TABLET PO SCH (21:51)
[2022-09-17] MEDS: LORazepam 1 MG TABLET PO SCH (21:51)
[2022-09-18] MEDS: LEVALBUTEROL 1.25 MG/3 ML AMPUL.NEB NEB SCH ×2 (03:44→10:11)
[2022-09-18] MEDS: 0.9 % SODIUM CHLORIDE 10 ML SYRINGE IV SCH (04:04)
[2022-09-18 07:02] LABS: ALT/SGPT 48 U/L (<40); AST/SGOT 24 U/L (<32); Albumin 3.7 gm/dL (3.2-5.2); Albumin/Globulin Ratio 1.5 (1.0-2.3); Alkaline Phosphatase 110 U/L (39-117); Bilirubin,Direct < 0.2 mg/dL (0-0.3); Bilirubin,Total 0.3 mg/dL (0.1-1.0); Blood Urea Nitrogen 18 mg/dL (6-20); Calcium 9.1 mg/dL (8.6-10.4); Carbon Dioxide 28 mmol/L (22-30); Chloride 97 mmol/L (96-108); Globulin 2.4 gm/dL (2.2-3.7); Glomerular Filtration Rate 73; Glucose 90 mg/dL (70-105); Lactate Dehydrogenase 170 U/L (135-225); Triglycerides 206 mg/dL (<150); Uric Acid 5.7 mg/dL (2.5-8.0)
--- NOTE | 2022-09-18 07:44 | XRay Report ---
HISTORY: Dyspnea FINDINGS: Subtle increased interstitial lung markings are present at the right lung base adjacent to the diaphragm. These are a new since 09/14/22. The lungs are otherwise clear and normally expanded. The heart size and pulmonary vasculature are normal. No pleural effusion is present and there are no abnormally enlarged lymph nodes. Skeletal structures are normal. IMPRESSION: Subtle interstitial lung disease in the right lung base which could be due to minor atelectasis or low level inflammation Interpreted and Authenticated by: García Novoa 09/18/22
[2022-09-18] MEDS: PANTOPRAZOLE 40 MG TABLET PO SCH (07:47)
--- NOTE | 2022-09-18 09:06 | Discharge Summary ---
Discharge Provider Provider IMPORTANT FOLLOW-UP INFORMATION FOR PCP: Patient information: Note initiated : 09/18/22 at 9:03 am Service Date, if different from initiated Date: [] Patient: Miriam Santos 51 y/o F admitted on 09/14/22 for Shortness of breath. Chief Complaint: [] Date of admission: 09/14/22 16:13 Discharge date: 09/18/22 Primary care physician: Mark Solis MD Consults: 09/14/22 Consult to Physician [CONS] Stat Comment: Consulting Provider: Dejuan Arevalo Reason For Exam: Physician to Consult COURSE Hospital Course Hospital course: Ms. Santos is a 51 year old female with a history of severe asthma on biologic therapy, multiple allergies, hypertension, palpitations, hypothyroidism, depression, anxiety, PTSD, multiple prior cancers who presented to the emergency department with shortness of breath. The patient has been trying to manage her asthma at home for the last 2 days with no success. She is taken prednisone 60 mg daily and increased her albuterol inhaler but continues to feel shortness of breath. The patient says that she usually goes to the emergency department if her symptoms do not improve after 2 days of initiating her asthma action plan. The patient says that she has been hospitalized many times for asthma exacerbations. She has been intubated many times as well however does not remember how many times she is required intubation for an asthma exacerbation. In the emergency department, the patient's respiratory rate was in the mid 20s, her heart rate was 90s to low 100s. The patient was saturating well on room air, she is afebrile. There is no leukocytosis, chemistry panel revealed a glucose of 422 but was otherwise fairly unremarkable. Hyperglycemia is likely secondary to recent prednisone use at home. Procalcitonin level was normal at 0.05. Chest x-ray did not show any acute process. Physical exam is notable for diffuse inspiratory and expiratory wheezes. 09/15 Respiratory status stable overnight, respiratory virus panel positive for influenza A. Tamiflu 75 mg twice daily started. Transfer to [facility] status. 09/16 Respiratory status stable overnight, vitals notable for high-grade temperatures but no fevers. CBC and chemistry panel this morning unremarkable. Diffuse bilateral expiratory wheezing on exam today. Ordered dose of magnesium but the patient did not tolerate it due to burning sensation at the peripheral IV site so discontinued. Continuing Solu-Medrol, scheduled and as needed Xopenex. On Tamiflu for influenza A. 09/17 Vital stable overnight, bilateral wheezing gradually improving. Magnesium IV once, the patient says she has tolerated this well before when given for asthma exacerbations. Chest x-ray today. If chest x-ray is clear and the patient continues to improve planning to discharge to home tomorrow morning. 09/18 Chest x-ray report shows subtle interstitial lung disease at the right lung base, radiology feels this could be minor atelectasis or low-level inflammation. Doubt this represents pneumonia as the patient is afebrile and clinically improving. Discharged home with a prednisone taper, complete 5 days of Tamiflu for influenza A, continued nystatin swish and swallow for thrush. The patient says she does not require refills for her home inhalers. Follow-up with primary care provider. Physical exam Head: Atraumatic, normal inspection. Eyes: normal appearance, no scleral icterus. Neck: full ROM Respiratory: Improved bilateral expiratory wheezes, no accessory muscle use, able to converse in complete sentences. Cardiovascular: normal rate and rhythm, S1, S2. GI/Abdominal: soft, nontender, no guarding. Extremities: full range of motion, nontender. Neurological: CN II-XII intact, intact motor, intact sensation. Psychiatric: normal mood. Skin: warm, normal color Discharge diagnosis: Asthma exacerbation Secondary discharge diagnosis: Influenza A Time Spent with Patient Time attestation: Total time spent providing and/or coordinating discharge services: Time spent: Less than 30 minutes EXAM Constitutional Vitals: Temp Pulse Resp BP Pulse Ox O2 Del Method 99.0 F 74 20 98/65 95 09/18/22 07:13 09/18/22 07:13 09/18/22 07:13 09/18/22 07:13 09/18/22 07:13 09/18/22 07:13 Discharge Data Data Completed and Pending Labs on day of discharge: Labs from last 24 hours 09/18/22 05:53 Sodium 137 Potassium 3.8 Chloride 97 Carbon Dioxide 28 Anion Gap 12.0 BUN 18 Creatinine 0.9 GFR Calculation 73 Glucose 90 Uric Acid 5.7 Calcium 9.1 Phosphorus 4.0 Magnesium 2.1 Total Bilirubin 0.3 Direct Bilirubin < 0.2 GGT 15 AST 24 ALT 48 H Alkaline Phosphatase 110 Lactate Dehydrogenase 170 Total Protein 6.1 Albumin 3.7 Globulin 2.4 Albumin/Globulin Ratio 1.5 Triglycerides 206 H Preliminary micro results at discharge 09/14/22 13:11 Blood Culture - Preliminary Blood 09/14/22 13:05 Blood Culture - Preliminary Blood Discharge Plan Patient/Caregiver Discharge Instructions Activity: increase activity as tolerated Diet: Regular Diet Prescriptions: New nystatin 100,000 unit/mL Suspension 500,000 units SSW QID 5 Days Qty: 100 1RF oseltamivir 75 mg Capsule 75 mg PO BID Qty: 2 0RF prednisone 20 mg tablet 60 mg PO QDAY Qty: 20 0RF Rx Instructions: Take prednisone 60 mg daily for 3 days followed by 40 mg daily for 3 days followed by 20 mg daily for 3 days followed by 10 mg daily for 3 days then discontinue. Continued lorazepam 1 mg tablet 2 mg PO QHS 90 Days Qty: 180 2RF epinephrine [EpiPen] 0.3 mg/0.3 mL auto-injector 0.3 mg IM DAILYP PRN (Reason: Allergic Reaction) Qty: 2 2RF Fasenra 30 mg/mL syringe 30 mg subcut Q4W Label Comments: Ordered per Dr Bee lansoprazole 30 mg capsule,delayed release(/EC) 30 mg PO QDAY Qty: 30 5RF sucralfate 1 gram tablet 1 g PO BID PRN (Reason: stomach pain) Qty: 60 1RF Rx Instructions: Before each meal. albuterol sulfate 2.5 mg /3 mL (0.083 %) solution for nebulization 2.5 mg inhalation Q4H PRN (Reason: Asthma) levalbuterol tartrate 45 mcg/actuation HFA aerosol inhaler 2 inh inhalation Q6H PRN (Reason: Shortness Of Breath) hydroxyzine HCl 10 mg tablet 10 mg PO ONCE PRN (Reason: Itching) Vital Protiens-collagen 1 tab PO DAILY clonidine 0.1 mg/24 hr patch weekly 1 patch transdermal WEEKLY PRN (Reason: Anxiety) Rx Instructions: Take while on Prednisone acyclovir 800 mg tablet 800 mg PO DAILY PRN (Reason: rash) Qty: 50 2RF Rx Instructions: 1 tab orally 5 times a day for 10 days As needed for flare famotidine [Pepcid] 40 mg tablet 40 mg PO DAILY Qty: 30 5RF cyclobenzaprine 5 mg tablet 5 mg PO MONTHLY Qty: 3 3RF Rx Instructions: Take one pill per month after dinner when on the Fasenra infusion dicyclomine 10 mg capsule 10 mg PO QDAY Qty: 90 3RF hydroxyzine HCl 50 mg tablet 50 mg PO HS Qty: 90 3RF levothyroxine 112 mcg tablet 112 mcg PO QDAY Qty: 90 3RF ondansetron HCl 4 mg tablet 4 mg PO Q4-6H PRN (Reason: Nausea And Vomiting) Qty: 30 2RF rizatriptan 10 mg tablet 10 mg PO .COMPLEX PRN (Reason: Headache) Qty: 18 5RF Rx Instructions: 10 mg PO up to one daily PRN; sertraline 50 mg tablet 50 mg PO DAILY Qty: 90 3RF fluticasone propionate [Flovent HFA] 1 PUFF HFA aerosol inhaler 2 puff INH QHS fluticasone propion-salmeterol [Advair Diskus] 1 PUFF blister with device 1 puff INH BID albuterol sulfate [ProAir HFA] 8.5 GM HFA aerosol inhaler 8.5 gm IH Q4HP PRN (Reason: Shortness Of Breath) cholecalciferol (vitamin D3) [Dialyvite Vitamin D] 5,000 UNIT capsule 10,000 unit PO DAILY flaxseed oil 1,000 MG capsule 2,000 mg PO DAILY potassium chloride [Klor-Con M20] 20 MEQ tablet,ER particles/crystals 20 meq PO QAMCC PRN (Reason: Pain) docusate sodium [DulcoEase] 100 MG capsule 100 mg PO Q48 PNV cmb#[id number]-ferrous fumarate-FA [ Formula] 1 EACH tablet 1 ea PO DAILY calcium carb-mag oxide-zinc ox 1 EACH tablet 1 ea PO DAILY verapamil 120 mg Tablet 120 mg PO HS verapamil 240 mg tablet extended release 240 mg PO DAILY Follow Up Plan Follow up with: Mark Solis MD [Primary Care Provider] - Patient Disposition: Home, Self-Care Overall status at discharge: patient is progressing back to baseline Discharge Orders: Discharge Order (Routine); Ordered 09/18/22 Ordered By: Dejuan PRIETO VTE Deep Vein Thrombosis/Pulmonary Embolism Present on Admission: No
[2022-09-18] MEDS: SUCRALFATE 1 GM/10 ML ORAL.SUSP PO SCH (10:22)
[2022-09-18] MEDS: VERAPAMIL 120 MG TAB.XL.24H PO SCH (10:22)
[2022-09-18] MEDS: NYSTATIN 500,000 UNITS/5 ML ORAL.SUSP SSW SCH (10:22)
[2022-09-18] MEDS: FAMOTIDINE 20 MG TABLET PO SCH (10:23)
[2022-09-18] MEDS: LEVOTHYROXINE SODIUM 112 MCG TABLET PO SCH (10:23)
[2022-09-18] MEDS: OSELTAMIVIR PHOSPHATE 75 MG CAPSULE PO SCH (10:23)
[2022-09-18] MEDS: DICYCLOMINE 20 MG TABLET PO SCH (10:23)
[2022-09-18] MEDS: methylPREDNISolone SOD SUCC 125 MG/2 ML VIAL IV SCH (10:23)
[2022-09-18] MEDS: SERTRALINE 50 MG TABLET PO SCH (10:24)
[2022-09-18] MEDS: DOCUSATE SODIUM 100 MG CAPSULE PO SCH (10:24)
[2022-09-18] MEDS: ENOXAPARIN 40 MG/0.4 ML SYRINGE SQ SCH (10:24)
== END 2022-09-18 13:05 | disposition home or self-care (01) | DRG 202 ==
LOC: ED 10:34 → ICU 16:13 → MEDSUR 09-15 15:02
PROVIDERS: ADMIT Internal Medicine; ATTEND Internal Medicine